=== PATIENT | female | born 1980 | race African-American/Black ===

== ENCOUNTER 2017-03-30 14:59 | Emergency (ER) | payer BC ==
[2017-03-30 15:34] LABS: Hemoglobin 13.7 gm/dL (12.5-16.0); Mean Corpuscular Hemoglobin 30.6 pg (27-31); Mean Corpuscular Hgb Conc 32.6 g/dl (32-36); Mean Platelet Volume 9.4 fl (6.0-9.5); Neutrophil # 3.7 K/mm3 (1.3-6.0); Neutrophil % 63.5 % (42-75.0); Platelet Count 204 K/mm3 (150-450); Red Blood Count 4.47 M/mm3 (4.2-5.4); Red Cell Distribution Width 12.7 % (11.5-14.0); White Blood Count 5.9 K/mm3 (4.0-10.5)
[2017-03-30 15:51] LABS: Anion Gap 8.1 mmol/L (6.8-13.8); Bilirubin, Total 0.4 mg/dL (0.0-1.1); Ca. Corrected For Albumin 8.9 mg/dL (8.4-10.2); Calcium * 9.2 mg/dL (7.9-10.9); Carbon Dioxide 32.4 mmol/L (24-32.6); Potassium 3.5 mmol/L (3.4-4.6); Total Protein 7.3 gm/dL (6.2-8.2)
[2017-03-30] MEDS ORDERED: NORMAL SALINE 1,000 ML IV ONE (16:08)
[2017-03-30] MEDS ORDERED: DIATRIZOATE MEGLU/DIATRIZO SOD 30 ML BTL PO ONE (16:09)
[2017-03-30] MEDS ORDERED: MORPHINE SULFATE 4 MG/ML SYRG IV ONE (16:09)
--- OUTSIDE RECORDS SUMMARY | 2017-03-30 16:30 | XMS REPORT | Continuity of Care Document ---
:1980 Author Organization [facility] [place] [address] Care Team Providers Name Role Phone Jacob Claire Primary Care Provider [phone] Source Comments This disclosure is being made pursuant to the [employer] program and maynot contain all information available regarding this patient.[facility] Active Allergies and Adverse Reactions Not on File Current Medications Be aware that medications may not be up to date as of this document. Alwaysverify current medications with the patient. Not on file Active Problems Not on file Immunizations Name Dates Previously Given Next Due Tdap 11/06/2008 Social History Tobacco Use Types Packs/Day Years Used Date Current Every Day Smoker Last Filed Vital Signs Vital Sign Reading Time Taken Blood Pressure 110/68 12/23/2011 1:18 PM [employer] Pulse 74 12/23/2011 1:18 PM [employer] Temperature 37.1 C (98.8 F) 12/23/2011 1:18 PM [employer] Respiratory Rate - - Height 1.626 m (5' 4") 12/23/2011 1:18 PM [employer] Weight 49.44 kg (108 lb 15.9 oz) 12/23/2011 1:18 PM [employer] Body Mass Index 18.7 12/23/2011 1:18 PM [employer] Oxygen Saturation - - Plan of Care Health Maintenance Due Date Last Done Comments Pap Smear 2003 Retired-INFLUENZA VACCINE 06/18/2015 Retired-Tetanus Vaccine Adult 11/06/2018 11/06/2008 Retired-Pertussis Vaccine Adult Completed 11/06/2008 Results from Last 3 Months Not on file
[2017-03-30 16:38] LABS: Urine Bilirubin Negative (NEGATIVE); Urine Blood 50 /ul (NEGATIVE); Urine Ketone 5 mg/dL (NEGATIVE); Urine Nitrite Negative (NEGATIVE); Urine Protein Negative (NEGATIVE); Urine Urobilinogen Normal (NORMAL); Urine pH 6.5 pH (5.0-7.0)
[2017-03-30 16:53] LABS: Urine Appearance Clear; Urine Bacteria 1+; Urine Color Yellow; Urine RBC 0-5 /hpf (0-5); Urine WBC None Seen /hpf (0-5)
[2017-03-30] MEDS ORDERED: MORPHINE SULFATE 4 MG/ML SYRG ONE (16:53)
[2017-03-30] MEDS ORDERED: DIATRIZOATE MEGLU/DIATRIZO SOD 30 ML BTL ONE (17:14)
[2017-03-30] MEDS ORDERED: DEXTROSE 4 GM/TAB BTL PO ONE (19:03)
--- NOTE | 2017-03-30 19:03 | ERNOTE ---
Abdominal HPI - Narrative Date of Service: 03/30/17 - General Chief Complaint: Abdominal Pain Time Seen by Provider: 03/30/17 16:03 Source: patient Exam Limitations: no limitations - Immun/Allergies/Home Medications Immunizatons: IMMUNIZATION HX Immunizations Up to Date Yes Allergies/Adverse Reactions: Allergies No Known Allergies Allergy (Unverified 03/30/17 15:18) Home Medications: HOME MEDICATIONS Ciprofloxacin HCl [Cipro] 500 mg PO BID #20 tab 03/30/17 [Last Taken Unknown] HYDROcodone/ACETAMINOPHEN [[place] 5-325] 1 tab PO Q8H PRN #10 tab 03/30/17 [Last Taken Unknown] metroNIDAZOLE [Flagyl] 500 mg PO QID #40 tab 03/30/17 [Last Taken Unknown] - History of Present Illness Narrative: Patient presents to the ED for abdominal pain. She was sent here from the clinic after she went in for diarrhea and RLQ abdominal pain. SHe relats the pain waxes and wanes but can be severe. She has had approx 20 watery diarrhea stools since Wednesday. No blood in the diarrhea. RLQ pain noted with this. Nothign seems to make it better or worse. No fever. No vomiting. No radiation of the pain. No vaginal d/c or other pelvic complaints. Timing: constant Quality: severe Activities at Onset: none Modifying Factors - (Improves): Present: other - nothing Modifying Factors - (Worsens): Present: movement Associated Symptoms: Absent: chest pain, diarrhea-gross blood Prior Abdominal Problems: Present: none Prior Treatment: Absent: recently hospitalized Review of Systems - Review of Systems Constitutional: Absent: fever Respiratory: Absent: shortness of breath Cardiology: Absent: chest pain Gastrointestinal/Abdominal: Present: See HPI Genitourinary: Absent: dysuria Musculoskeletal: Absent: back pain Neurological: Absent: weakness - Patient's Past Medical History Patient History - Medical: Anxiety, Bipolar Patient History - Cancer: No Hx of Cancer Patient History - Surgical Procedures: Patient History - Other: None - Social History Living Situations: home Psych History: Hx of Anxiety, Hx of Bipolar Disorder Smoking Status: Current every day smoker Alcohol Use: none Drug Use: none - Immunizations Immunizations Up to Date: Yes Physical Exam - Physical Exam General Appearance: Present: alert, no apparent distress Eye Exam: Normal inspection: bilateral, PERRL: bilateral Ears, Nose, Throat: Present: normal ENT inspection Neck: Present: normal inspection Respiratory: Present: no respiratory distress, normal breath sounds, lungs clear Cardiovascular/Chest: Present: regular rate, rhythm Gastrointestinal/Abdominal: Present: normal bowel sounds, nondistended, soft, other - RLQ tenderness to palpation. Moderate. No guarding or rebound. No peritoneal signs. No other abdominal tenderness. Back Exam: Absent: CVA tenderness (R), CVA tenderness (L) Extremity Exam: Present: normal inspection Neurological Exam: Present: alert, normal mood/affect, no motor/sensory deficits Skin Exam: Absent: skin rash ED Progress - Results and Orders Patient's Lab Results:: I have reviewed the patient's lab results. - Vital Signs Patient's Vital Signs:: I have reviewed the patient's vital signs. Vital Signs: Vital Signs 03/30/17 03/30/17 03/30/17 15:12 16:18 17:00 Temperature 36.7 C 37.4 C Pulse Rate 71 61 65 Respiratory 12 16 16 Rate Blood Pressure 128/86 110/56 131/71 O2 Sat by Pulse 100 100 100 Oximetry 03/30/17 03/30/17 03/30/17 17:44 18:20 18:50 Temperature 37.3 C Pulse Rate 53 L 60 64 Respiratory 16 14 16 Rate Blood Pressure 128/76 126/68 118/70 O2 Sat by Pulse 100 99 98 Oximetry - CT/Ultrasound CT/Ultrasound Narrative: I reviewed the CT report. No clear evidence of appendicitis - Progress/Reassessment Chief Complaint: Abdominal Pain Progress Note-Subjective: 03/30/17 20:02 Still mild low abdominal tendenress. Clinically doubt appendicitis and no inflammatory changes in the RLQ. Clinical Sx most c/w colitis. I spoke with Dr Pete via phone and discussed the case. he will follow-up with the patient in the office. Begin ABx. I discussed this with her and she is agreeable. i discussed warning signs and reasons to return as well as the need for close f/u. Departure - Departure Clinical Impression: Abdominal pain, Colitis Condition: Stable Instructions: Abdominal Pain, Adult, [id number], Colitis Additional Instructions: Rest. Medications as directed. No driving with pain medications. Antibiotics. Call Dr Pete's office tomorrow for follow-up, I spoke with him regarding your case. Return here for fever, vomiting or if your condition worsens or changes in any way. Prescriptions: Ciprofloxacin HCl [Cipro] 500 mg PO BID #20 tab HYDROcodone/ACETAMINOPHEN [[place] 5-325] 1 tab PO Q8H PRN #10 tab PRN Reason: Pain metroNIDAZOLE [Flagyl] 500 mg PO QID #40 tab
[2017-03-30] MEDS ORDERED: DEXTROSE 4 GM/TAB BTL ONE (19:19)
[2017-03-30 19:51] VITALS: BP 121/68
== END 2017-03-30 20:15 | disposition home or self-care (01) ==
LOC: ER 14:59
DX: R10.9 Unspecified abdominal pain (principal); K52.9 Noninfective gastroenteritis and colitis, unspecified; Z72.0 Tobacco use